=== PATIENT | female | born 1990 | race Caucasian/White ===

== ENCOUNTER 2020-11-11 05:20 | Emergency (ER) | payer MEDICAID ==
[~2020-11-11] VITALS: Ht 157.5 cm; Wt 84.1 kg
--- NOTE | 2020-11-11 05:35 | NUR ---
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 Pt's teeth visualized. Multiple broken teeth visualizes as well as infection noted. Pt states upper right tooth pain.
[2020-11-11] MEDS ORDERED: PENI500T2 PO (05:39)
[2020-11-11] MEDS ORDERED: IBUP-1986 PO (05:39)
[2020-11-11] MEDS ORDERED: ibuprofen tablet 400 MG TABLET PO ONE ×2 (05:40→05:50)
[2020-11-11] MEDS ORDERED: penicillin V potassium 500mg tablet PO ONE (05:40)
[2020-11-11 05:56] VITALS: BP 135/85
== END 2020-11-11 05:58 | disposition home or self-care (01) ==
LOC: ER 05:21
DX: K08.89 Other specified disorders of teeth and supporting structures (principal); F17.200 Nicotine dependence, unspecified, uncomplicated; F15.90 Other stimulant use, unspecified, uncomplicated; Z79.2 Long term (current) use of antibiotics; Z88.0 Allergy status to penicillin
CPT/HCPCS: 99283

== ENCOUNTER 2020-12-07 13:14 | Emergency (ER) | payer MEDICAID ==
[~2020-12-07] VITALS: Ht 157.5 cm; Wt 89.2 kg
[~2020-12-07 13:14] MED LIST: IBUP-1986 PO
[2020-12-07 13:56] LABS: URINE HCG NEGATIVE (NEG)
[2020-12-07 13:59] LABS: CLARITY,URINE CLEAR (Clear); COLOR,URINE YELLOW (Yellow); GLUCOSE, URINE NEGATIVE (Neg); KETONES,URINE NEGATIVE (Neg); LEUKOCYTE ESTERASE ,URINE NEGATIVE (Neg); NITRITES, URINE NEGATIVE (Neg); OCCULT BLOOD,URINE LARGE (Neg); PH,URINE 6.5 (4.8-8.0); PROTEIN,URINE NEGATIVE (Neg); UROBILINOGEN,URINE 0.2 E.U/dL (0.2-1.0)
[2020-12-07 14:03] LABS: UA COLLECTION TYPE NON-SPECIFIED
[2020-12-07 14:04] LABS: BACTERIA,URINE NONE SEEN /HPF (Neg); MUCUS STRANDS NONE SEEN /LPF (Neg); RBC,URINE NONE SEEN /HPF (0-2); SQUAMOUS EPITHELIAL CELL,UR FEW /LPF (FEW); WBC,URINE NONE SEEN /HPF (0-4)
[2020-12-07] MEDS ORDERED: CEFTRIAXONE 500 MG VIAL IM ONE (16:35)
[2020-12-07] MEDS ORDERED: DOXY-1 PO (16:35)
[2020-12-07] MEDS ORDERED: METR500T PO (16:40)
[2020-12-07] MEDS ORDERED: FLUC150T PO (16:40)
[2020-12-07 17:09] VITALS: BP 123/68
== END 2020-12-07 17:10 | disposition home or self-care (01) ==
LOC: ER 13:15
DX: N76.0 Acute vaginitis (principal); N93.9 Abnormal uterine and vaginal bleeding, unspecified; F15.90 Other stimulant use, unspecified, uncomplicated; F17.200 Nicotine dependence, unspecified, uncomplicated; Z98.51 Tubal ligation status; Z79.2 Long term (current) use of antibiotics; Z79.899 Other long term (current) drug therapy
CPT/HCPCS: 36415; 81001; 81025; 87210; 87491; 99283; 99284